=== PATIENT | female | born 1935 | race Caucasian/White ===

== ENCOUNTER → 2017-03-02 | Outpatient (CLI) | payer MEDICARE ==
--- NOTE | 2017-03-02 13:36 | RAD ---
EXAM DESCRIPTION: Barium Swallow CLINICAL HISTORY: 82 years Female, ABN SWALLOW COMPARISON: None. FINDINGS: Total fluoroscopy time 1.0 minutes, 15 fluoroscopic images including 4 cine clips, total exam dose 30.68 mGy. The esophagus is of normal course and caliber. There is a small spontaneously reducing hiatal hernia. No esophageal wall or fold thickening is seen. There is no esophageal stricture or diverticulum. Images obtained in the prone MORAN position show no evidence of esophageal dysmotility. Gastroesophageal reflux limited to the distal half of the esophagus was observed during this exam. IMPRESSION: Small spontaneously reducing hiatal hernia and gastroesophageal reflux, but no esophagitis, stricture or other complication. Electronically signed by: Mauricio Johnson MD 03/02/2017 1:36 PM CDT [email or web address]
== END ==
LOC: RAD 10:10
PROVIDERS: ATTEND Otolaryngology
DX: R13.10 Dysphagia, unspecified (principal); K44.9 Diaphragmatic hernia without obstruction or gangrene; K21.9 Gastro-esophageal reflux disease without esophagitis

== ENCOUNTER → 2017-03-16 | Outpatient (CLI) | payer MEDICARE | END | disposition home or self-care (01) | LOC: MRI 12:39 | PROVIDERS: ATTEND Otolaryngology | DX: M54.2 Cervicalgia (principal) ==

== ENCOUNTER → 2018-01-12 | Outpatient (CLI) | payer MEDICARE ==
--- NOTE | 2018-01-12 13:19 | CT ---
EXAM DESCRIPTION: Head: Computed Tomography. CLINICAL HISTORY: [id number]. Patient states fell out of bed. Headaches. Neck pain COMPARISON: CT scan cervical spine on the same visit. TECHNIQUE: Non-helical axial scans through the skull and brain, at 5.0 mm intervals, non-contrast. Axial 2.5 mm reconstructions. Coronal and sagittal 2.0 mm reconstructions. Total Exam DLP: 859.97 mGy-cm. This exam was performed according to our departmental dose-optimization program which includes automated exposure control, adjustment of the mA and/or kV according to patient size and/or use of iterative reconstruction technique; to reduce radiation dose to as low as reasonably achievable (ALARA). FINDINGS: No hemorrhage, no mass-effect, and no midline shift. Bilateral periventricular white matter low-density which is relatively symmetric but more focally low dense in the montilla radiata of the left frontal lobe at the level of the ventricles. Similar appearing region at a slightly lower level in the right frontal lobe, abutting the anterior right basal ganglia Small calcification right basal ganglia. No abnormal radiodense material in the brain parenchyma. Vascular calcifications anterior circulation.; physiologic calcifications in the pineal gland and choroid plexus. No effacement or displacement of the ventricles, CSF spaces, or subdural spaces. No extra axial fluid collection or hemorrhage. No gross abnormalities of the bony calvarium. Symmetric thickening of the inner table of the lateral frontal bones. Included paranasal sinuses and mastoid air cells are well - aerated. IMPRESSION: 1. No hemorrhage, no mass effect, no midline shift. Bilateral periventricular leukomalacia, more focal in the montilla radiata of the left frontal lobe at the level of the left lateral ventricle and also in the anterior right basal ganglia. These could represent chronic ischemia or old infarctions. 2. CT scans are insensitive for detecting small CVAs in the first 24 hours after onset. Evaluation of the brain stem is also limited. If symptoms persist, consider nonemergent MRI scan of the brain with diffusion imaging. Electronically signed by: David Coffman MD 01/12/2018 1:17 PM CDT
--- NOTE | 2018-01-12 13:40 | CT ---
EXAM DESCRIPTION: Cervical Spine: Computed Tomography. CLINICAL HISTORY: CERVICAL PN-54.2. Patient fell. Neck pain. Headaches. COMPARISON: None Available. TECHNIQUE: Spiral, axial 2.5 mm scans through the cervical spine without contrast. Coronal and sagittal 2.0 mm Reconstructions. Total Exam DLP: 490.36 mGy-cm. This exam was performed according to our departmental dose-optimization program which includes automated exposure control, adjustment of the mA and/or kV according to patient size and/or use of iterative reconstruction technique; to reduce radiation dose to as low as reasonably achievable (ALARA). FINDINGS: No compression type vertebral body fracture. No severe subluxation or spondylolisthesis. No perched or locked facets. No fractures of the posterior elements or the skull base. 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 Multiple levels of facet arthrosis from C1-C2 to C7-T1 bilaterally. Significant neural foraminal narrowing bilaterally at C6-7. Advanced disc space loss and spondylosis C5-6 and C6-7. Kyphosis of the cervical spine. Bilateral lungs with Mosaic density in probably interstitial markings in the anterior right upper lobe. Atherosclerotic calcifications in the included thoracic aortic arch. 1.5 x 1.2 cm complex nodule in the right thyroid lobe with a 4 mm partially calcified nodule in the left. Included neck soft tissues no dominant soft tissue mass. Evaluation limited due to lack of IV contrast. IMPRESSION: 1.No compression type vertebral body fracture. No severe subluxation or spondylolisthesis. No perched or locked facets. No fractures of the posterior elements or the skull base. 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 2. 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 Cervical kyphosis may be due to muscle spasm. 3. Possible emphysematous changes in the included lung lowry more on the right. Correlate with clinical history. 4. Abnormal complex nodule in the right thyroid lobe and calcified nodule in the left. Nonemergent thyroid sonography is recommended for these incidental thyroid nodules according to [facility] Best Practice recommendations for ITN follow-up in reference to ACR and [facility] white paper. Please see below* *1.Further evaluation by thyroid US recommended for: -Solitary ITN with high risk imaging features (locally invasive nodule or suspicious lymph nodes) -Solitary ITN of any size in pediatric pts. <= 18 years of age -Solitary ITN >= 1 cm in axial plane in pts. between 18 and 35 years of age -Solitary ITN >= 1.5 cm in axial plane in pts >= 35 years of age -Heterogeneous enlarged thyroid gland -ITN avid on FDG-PET or other nuclear medicine (MIBI and octreotide) scans. FNA biopsy is also recommended for PET avid nodules. 2.No f/u imaging is recommended for ITNs not meeting the above criteria. 3.For multiple thyroid nodules, the above recommendations for solitary ITN are to be applied to the largest nodule. 4.No US or f/u recommended for ITNs without high risk features in pts. with limited life expectancy or significant co-morbidities, unless clinically warranted. 5.These recommendations do not apply to pts. w/ increased risk for thyroid cancer or pts. with symptomatic thyroid disease. Recommendations for f/u of Incidental Thyroid Nodules (ITN) found on CT, MR, NM and Extrathyroidal US are based upon the ACR white paper and [employer]ner 3-tiered system for managing ITNs: J Am Isaiah [employer]. 2015 Nov;12(2): 143-50 Electronically signed by: David Coffman MD 01/12/2018 1:39 PM CDT
== END | disposition home or self-care (01) ==
LOC: LAB.O 12:34
PROVIDERS: ATTEND General Practice
DX: M54.2 Cervicalgia (principal); R51 Headache